=== PATIENT | female | born 1950 | race Caucasian/White ===

== ENCOUNTER → 2017-01-15 | Outpatient (CLI) | payer OTHER ==
[~2017-01-15] MED LIST: ASCORBIC ACID500 MG PO; CENTRUM COMPLE1 EACH PO; CIPRO500 MG PO; ESKALITH CR450 MG PO; FISH OIL 1,2001 EACH PO; FLAGYL500 MG PO; OSCAL500 MG PO; VISTARIL25 MG PO
== END ==
LOC: LCOBG 16:52
DX: Z12.4 Encounter for screening for malignant neoplasm of cervix (principal)
CPT/HCPCS: G0145

== ENCOUNTER → 2017-02-28 | Outpatient (CLI) | payer OTHER ==
[2017-02-28 06:03] LABS: BILIRUBIN URINE NEGATIVE (NEGATIVE); BLOOD URINE NEGATIVE /UL (NEGATIVE); COLOR URINE YELLOW (YELLOW); GLUCOSE URINE NEGATIVE (NEGATIVE); KETONE URINE NEGATIVE (NEGATIVE); LEUKOCYTES URINE 100 /UL (NEGATIVE); NITRITE URINE NEGATIVE (NEGATIVE); PROTEIN URINE 100 mg/dL (NEGATIVE); SPEC GRAVITY URINE 1.025 (1.003-1.035); TURBIDITY URINE CLEAR (CLEAR); UROBILINOGEN URINE NORMAL (NORMAL)
[2017-02-28 06:09] LABS: RBC URINE NEGATIVE #/HPF (NEGATIVE)
[2017-02-28 06:10] LABS: BACTERIA URINE RARE (NEGATIVE)
== END | disposition disaster alternative care site (69) ==
LOC: GLAB 05:37
PROVIDERS: Psychiatry & Neurology Psychiatry
DX: F31.74 Bipolar disorder, in full remission, most recent episode manic (principal)